=== PATIENT | female | born 1935 | race Caucasian/White ===

== ENCOUNTER 2021-06-01 23:38 | Inpatient (IN) | payer OTHER, SELFPAY ==
[~2021-06-01] VITALS: Ht 152.4 cm; Wt 44.0 kg
[2021-06-01 23:40] VITALS: BP_SYST 106
[2021-06-02 00:26] LABS: BASOPHILS % (AUTO) 0.3 % (0.0-2.0); EOSINOPHILS % (AUTO) 0.2 % (0.0-4.0); HEMATOCRIT 32.3 % (36-48); HEMOGLOBIN 10.6 g/dL (12.0-16.0); LYMPHOCYTES # (AUTO) 1.7 K/uL (1.0-5.5); LYMPHOCYTES % (AUTO) 18.2 % (20.5-51.5); MEAN CORPUSCULAR HEMOGLOBIN 30 pg (27-31); MEAN CORPUSCULAR HGB CONC 33 % (32-36); MEAN CORPUSCULAR VOLUME 91 fL (79.0-98.0); MONOCYTES # (AUTO) 0.6 K/uL (0.0-1.0); MONOCYTES % (AUTO) 6.8 % (1.7-9.3); NEUTROPHILS # (AUTO) 6.9 K/uL (1.8-7.7); NEUTROPHILS % (AUTO) 74.5 % (40.0-70.0); PLATELET COUNT (AUTO) 261 K/uL (130-430); RED BLOOD CELL COUNT(AUTO) 3.54 MIL/uL (4.2-6.2); WHITE BLOOD COUNT (AUTO) 9.2 K/uL (4.8-10.8)
[2021-06-02 00:32] LABS: ANION GAP 10 (5-15); CALCIUM 7.7 mg/dL (8.4-11.0); CHLORIDE 104 mmol/L (98-107); GLUCOSE 165 mg/dL (70-99); SODIUM SERUM 138 mmol/L (136-145); UREA NITROGEN, BLOOD 30 mg/dL (8-21)
[2021-06-02 00:36] LABS: PROTHROMBIN TIME 10.5 SECS (9.5-12.5)
[2021-06-02] MEDS ORDERED: LORazepam 2 MG/ML VIAL IVP ONE (00:45)
[2021-06-02] MEDS ORDERED: NS 500 ML IV ONE ×3 (00:45→03:30)
[2021-06-02 00:47] LABS: ALANINE AMINOTRANSFERASE 20 U/L (12-78); ALBUMIN 2.4 g/dL (3.4-4.8); ASPARTATE AMINOTRANSFERASE 30 U/L (10-37); THYROID STIMULATING HORMONE 0.02 uIu/mL (0.36-3.74); TOTAL BILIRUBIN 0.6 mg/dL (0.0-1.0)
[2021-06-02 00:51] LABS: ALCOHOL, BLOOD < 3 mg/dL (<10)
[2021-06-02] MEDS ORDERED: cefTRIAXone 1 GM IVPB PREMIX 50 ML IV ONE (03:30)
[2021-06-02 04:05] LABS: BILIRUBIN,URINE NEGATIVE (NEGATIVE); BLOOD, URINE NEGATIVE (NEGATIVE); CLARITY/URINE CLEAR (CLEAR); COLOR,URINE YELLOW (YELLOW); GLUCOSE,URINE NEGATIVE (NEGATIVE); KETONES,URINE NEGATIVE (NEGATIVE); LEUKOCYTE ESTERASE ,URINE NEGATIVE (NEGATIVE); NITRITE, URINE NEGATIVE (NEGATIVE); PROTEIN URINE NEGATIVE (NEGATIVE); UROBILINOGEN,URINE 0.2 (0.2-1.0)
[2021-06-02 04:18] LABS: BARBITURATE, URINE NEGATIVE (NEG <=200); BENZODIAZEPINE, URINE NEGATIVE (NEG <=150); CANNABINOID, URINE NEGATIVE (NEG <=50); COCAINE, URINE NEGATIVE (NEG <=150); METHAMPHETAMINES SCREEN,URINE NEGATIVE (NEG <=500); OPIATE, URINE NEGATIVE (NEG <=100); PHENCYCLIDINE SCREEN,URINE NEGATIVE (NEG <=25); UR TRICYCLIC ANTIDEPRESSANTS NEGATIVE (NEG <=300); URINE AMPHETAMINE NEGATIVE (NEG <=500); URINE METHADONE NEGATIVE (NEG <=200); URINE OXYCODONE SCREEN NEGATIVE (NEG <=100); URINE PROPOXYPHENE SCREEN NEGATIVE (NEG <=300)
[2021-06-02] MEDS ORDERED: KETAMINE 30 MG/3 ML SYRINGE IVP ONE (05:15)
[2021-06-02] MEDS ORDERED: ACETAMINOPHEN 325 MG TABLET PO PRN ×2 (06:30→08:15)
[2021-06-02] MEDS ORDERED: HALOPERIDOL LACTATE 5 MG/ML VIAL IM ONE (06:30)
[2021-06-02] MEDS ORDERED: DIPHENHYDRAMINE INJ 50 MG/ML VIAL IM ONE (06:30)
[2021-06-02] MEDS ORDERED: ONDANSETRON HCL 4 MG/2 ML VIAL IVP PRN (06:30)
[2021-06-02 08:01] LABS: BASOPHILS % (AUTO) 0.2 % (0.0-2.0); EOSINOPHILS % (AUTO) 0.1 % (0.0-4.0); HEMATOCRIT 24.6 % (36-48); HEMOGLOBIN 8.2 g/dL (12.0-16.0); LYMPHOCYTES # (AUTO) 1.2 K/uL (1.0-5.5); LYMPHOCYTES % (AUTO) 13.9 % (20.5-51.5); MEAN CORPUSCULAR HEMOGLOBIN 30 pg (27-31); MEAN CORPUSCULAR HGB CONC 33 % (32-36); MEAN CORPUSCULAR VOLUME 91 fL (79.0-98.0); MONOCYTES # (AUTO) 0.6 K/uL (0.0-1.0); MONOCYTES % (AUTO) 7.4 % (1.7-9.3); NEUTROPHILS # (AUTO) 6.8 K/uL (1.8-7.7); NEUTROPHILS % (AUTO) 78.4 % (40.0-70.0); PLATELET COUNT (AUTO) 212 K/uL (130-430); RED BLOOD CELL COUNT(AUTO) 2.69 MIL/uL (4.2-6.2); WHITE BLOOD COUNT (AUTO) 8.7 K/uL (4.8-10.8)
[2021-06-02 08:31] LABS: ANION GAP 6 (5-15); CHLORIDE 108 mmol/L (98-107); CREATININE 0.48 mg/dL (0.55-1.30); GLUCOSE 95 mg/dL (70-99); POTASSIUM 3.4 mmol/L (3.5-5.1); SODIUM SERUM 138 mmol/L (136-145); UREA NITROGEN, BLOOD 37 mg/dL (8-21)
[2021-06-02 08:45] LABS: CALCIUM 6.8 mg/dL (8.4-11.0)
[2021-06-02 12:04] LABS: TOTAL IRON BIND. CAPACITY 136 ug/dL (250-450)
[2021-06-02] MEDS: D5NS 1,000 ML IV SCH (12:15)
[2021-06-02] MEDS: NORMAL SALINE 5 ML DISP.SYRIN IVF SCH ×2 (13:56→22:06)
[2021-06-02] MEDS ORDERED: NORMAL SALINE 5 ML DISP.SYRIN IVF SCH (14:00)
[2021-06-02 16:22] VITALS: BP_SYST 126
[2021-06-02 20:00] VITALS: BP_SYST 109
[2021-06-03 00:30] VITALS: BP_SYST 102
[2021-06-03] MEDS: NORMAL SALINE 5 ML DISP.SYRIN IVF SCH ×3 (06:16→20:20)
[2021-06-03] MEDS: D5NS 1,000 ML IV SCH ×3 (06:16→23:13)
[2021-06-03 08:00] VITALS: BP_SYST 119
[2021-06-03] MEDS: NICOTINE 21 MG/24 HR PATCH.TD24 TD SCH (09:34)
[2021-06-03] MEDS ORDERED: ENOXAPARIN SODIUM 30 MG/0.3 ML SYRINGE SUBCUT SCH (10:30)
[2021-06-03 12:00] VITALS: BP_SYST 111
[2021-06-03] MEDS ORDERED: PANTOPRAZOLE SODIUM 40 MG/VIAL (PROTONIX) IVP ONE (13:00)
[2021-06-03 15:05] LABS: HEMOGLOBIN 5.6 g/dL (12.0-16.0)
[2021-06-03 15:06] LABS: HEMATOCRIT 17.3 % (36-48)
[2021-06-03 16:00] VITALS: BP_SYST 122
[2021-06-03] MEDS ORDERED: NACL 0.9% 1,000 ML IV ONE (16:00)
[2021-06-03 20:00] VITALS: BP_SYST 118
[2021-06-03] MEDS: PANTOPRAZOLE SODIUM 40 MG/VIAL (PROTONIX) IVP SCH (20:19)
[2021-06-03 20:41] LABS: HEMOGLOBIN 5.4 g/dL (12.0-16.0)
[2021-06-04] VITALS (14 sets, daily range): BP systolic 116–177
[2021-06-04] MEDS: NORMAL SALINE 5 ML DISP.SYRIN IVF SCH ×3 (06:11→22:25)
[2021-06-04 06:57] LABS: BASOPHILS % (AUTO) 0.1 % (0.0-2.0); HEMATOCRIT 32.3 % (36-48); HEMOGLOBIN 10.8 g/dL (12.0-16.0); LYMPHOCYTES # (AUTO) 1.3 K/uL (1.0-5.5); LYMPHOCYTES % (AUTO) 7.9 % (20.5-51.5); MEAN CORPUSCULAR HEMOGLOBIN 30 pg (27-31); MEAN CORPUSCULAR HGB CONC 33 % (32-36); MEAN CORPUSCULAR VOLUME 91 fL (79.0-98.0); MONOCYTES # (AUTO) 0.8 K/uL (0.0-1.0); MONOCYTES % (AUTO) 4.9 % (1.7-9.3); NEUTROPHILS # (AUTO) 14.9 K/uL (1.8-7.7); NEUTROPHILS % (AUTO) 87.1 % (40.0-70.0); PLATELET COUNT (AUTO) 163 K/uL (130-430); RED BLOOD CELL COUNT(AUTO) 3.57 MIL/uL (4.2-6.2); RED CELL DISTRIBUTION WIDTH 15.5 % (9.0-15.0); WHITE BLOOD COUNT (AUTO) 17.1 K/uL (4.8-10.8)
[2021-06-04 06:58] LABS: PROTHROMBIN TIME 10.8 SECS (9.5-12.5)
[2021-06-04 07:29] LABS: ALANINE AMINOTRANSFERASE 13 U/L (12-78); ALBUMIN 1.9 g/dL (3.4-4.8); ANION GAP 9 (5-15); ASPARTATE AMINOTRANSFERASE 28 U/L (10-37); CALCIUM 7.1 mg/dL (8.4-11.0); CHLORIDE 117 mmol/L (98-107); CREATININE 0.61 mg/dL (0.55-1.30); GLUCOSE 108 mg/dL (70-99); SODIUM SERUM 147 mmol/L (136-145); TOTAL BILIRUBIN 0.7 mg/dL (0.0-1.0); UREA NITROGEN, BLOOD 37 mg/dL (8-21)
[2021-06-04] MEDS ORDERED: MIDAZOLAM HCL 5 MG/5 ML VIAL ONE (08:12)
[2021-06-04] MEDS ORDERED: fentaNYL CITRATE/PF 100 MCG/2 ML AMP ONE ×2 (08:12→14:34)
[2021-06-04 08:21] LABS: POTASSIUM 2.7 mmol/L (3.5-5.1)
[2021-06-04] MEDS ORDERED: HEPARIN SODIUM, PORCINE 10,000 UNITS/ 10 ML VIAL ONE (08:30)
[2021-06-04] MEDS ORDERED: NS 1000 ML IV.SOLN IV ONE (08:30)
[2021-06-04] MEDS ORDERED: NS 500 ML IV.SOLN IV ONE (08:30)
[2021-06-04] MEDS ORDERED: KCL 20 mEq in 100 mL (PREMIX) 100 ML IV ONE (08:30)
[2021-06-04] MEDS ORDERED: LIDOCAINE 1% 10 MG/ML, 20 ML MDV ONE (08:30)
[2021-06-04] MEDS ORDERED: WATER FOR IRRIGATION,STERILE 1,000 ML IRRIG.SOLN IR ONE (08:30)
[2021-06-04] MEDS: PANTOPRAZOLE SODIUM 40 MG/VIAL (PROTONIX) IVP SCH (08:56)
[2021-06-04] MEDS: NICOTINE 21 MG/24 HR PATCH.TD24 TD SCH (09:00)
[2021-06-04] MEDS: PANTOPRAZOLE SODIUM 40 MG in NS 50 ML IV SCH ×3 (10:00→20:23)
[2021-06-04] MEDS ORDERED: EPINEPHrine JECT 0.1 MG/ML SYR ONE (10:30)
[2021-06-04] MEDS: D5NS 1,000 ML IV SCH ×2 (11:00→18:43)
[2021-06-04] MEDS ORDERED: MEPERIDINE 100 MG INJ. 100 MG/ML VIAL ONE (14:34)
[2021-06-04] MEDS: MIDAZOLAM HCL 5 MG/5 ML VIAL ONE ×2 (15:45→15:47)
[2021-06-04] MEDS ORDERED: IOHEXOL 350 mgI/mL, 150 ML INFUS..BTL IV ONE (17:17)
[2021-06-04 20:28] LABS: MEAN CORPUSCULAR HEMOGLOBIN 29 pg (27-31); MEAN CORPUSCULAR HGB CONC 32 % (32-36); MEAN CORPUSCULAR VOLUME 91 fL (79.0-98.0); PLATELET COUNT (AUTO) 139 K/uL (130-430); RED BLOOD CELL COUNT(AUTO) 4.28 MIL/uL (4.2-6.2); RED CELL DISTRIBUTION WIDTH 15.6 % (9.0-15.0); WHITE BLOOD COUNT (AUTO) 20.3 K/uL (4.8-10.8)
[2021-06-04 20:31] LABS: HEMOGLOBIN 12.5 g/dL (12.0-16.0)
[2021-06-04 20:41] LABS: BAND % (MANUAL) 0 % (0-6); BASOPHILS % (MANUAL) 0 % (0-2); EOSINOPHILS % (MANUAL) 0 % (0-7); LYMPHOCYTES % (MANUAL) 7 % (20-46); MONOCYTES % (MANUAL) 6 % (0-11)
[2021-06-04 23:34] LABS: BASOPHILS % (AUTO) 0.1 % (0.0-2.0); EOSINOPHILS % (AUTO) 0.1 % (0.0-4.0); HEMATOCRIT 37.2 % (36-48); HEMOGLOBIN 12.1 g/dL (12.0-16.0); LYMPHOCYTES # (AUTO) 1.3 K/uL (1.0-5.5); LYMPHOCYTES % (AUTO) 7.1 % (20.5-51.5); MEAN CORPUSCULAR HEMOGLOBIN 30 pg (27-31); MEAN CORPUSCULAR HGB CONC 33 % (32-36); MEAN CORPUSCULAR VOLUME 90 fL (79.0-98.0); MONOCYTES # (AUTO) 0.7 K/uL (0.0-1.0); MONOCYTES % (AUTO) 4.1 % (1.7-9.3); NEUTROPHILS # (AUTO) 15.9 K/uL (1.8-7.7); NEUTROPHILS % (AUTO) 88.6 % (40.0-70.0); PLATELET COUNT (AUTO) 139 K/uL (130-430); RED BLOOD CELL COUNT(AUTO) 4.12 MIL/uL (4.2-6.2); RED CELL DISTRIBUTION WIDTH 15.5 % (9.0-15.0); WHITE BLOOD COUNT (AUTO) 17.9 K/uL (4.8-10.8)
[2021-06-05] VITALS (24 sets, daily range): BP systolic 102–187
[2021-06-05] MEDS: PANTOPRAZOLE SODIUM 40 MG in NS 50 ML IV SCH ×5 (01:30→20:40)
[2021-06-05] MEDS: DIPHENHYDRAMINE INJ 50 MG/ML VIAL IVP PRN ×2 (01:31→22:32)
[2021-06-05] MEDS: D5NS 1,000 ML IV SCH ×2 (04:41→14:32)
[2021-06-05] MEDS: NORMAL SALINE 5 ML DISP.SYRIN IVF SCH ×3 (05:44→22:24)
[2021-06-05 08:38] LABS: ALANINE AMINOTRANSFERASE 19 U/L (12-78); ALBUMIN 1.9 g/dL (3.4-4.8); ANION GAP 8 (5-15); ASPARTATE AMINOTRANSFERASE 28 U/L (10-37); BASOPHILS % (AUTO) 0.2 % (0.0-2.0); CALCIUM 7.3 mg/dL (8.4-11.0); CHLORIDE 119 mmol/L (98-107); GLUCOSE 98 mg/dL (70-99); HEMATOCRIT 35.4 % (36-48); HEMOGLOBIN 11.9 g/dL (12.0-16.0); LYMPHOCYTES % (AUTO) 6.4 % (20.5-51.5); MEAN CORPUSCULAR HEMOGLOBIN 30 pg (27-31); MEAN CORPUSCULAR HGB CONC 34 % (32-36); MEAN CORPUSCULAR VOLUME 90 fL (79.0-98.0); MONOCYTES # (AUTO) 0.7 K/uL (0.0-1.0); MONOCYTES % (AUTO) 4.3 % (1.7-9.3); NEUTROPHILS # (AUTO) 13.6 K/uL (1.8-7.7); NEUTROPHILS % (AUTO) 89.1 % (40.0-70.0); PLATELET COUNT (AUTO) 141 K/uL (130-430); RED BLOOD CELL COUNT(AUTO) 3.94 MIL/uL (4.2-6.2); RED CELL DISTRIBUTION WIDTH 15.6 % (9.0-15.0); SODIUM SERUM 148 mmol/L (136-145); TOTAL BILIRUBIN 0.5 mg/dL (0.0-1.0); UREA NITROGEN, BLOOD 20 mg/dL (8-21); WHITE BLOOD COUNT (AUTO) 15.2 K/uL (4.8-10.8)
[2021-06-05 09:04] LABS: POTASSIUM 2.6 mmol/L (3.5-5.1)
[2021-06-05] MEDS ORDERED: KCL 40 mEq in 100 mL (PREMIX) 100 ML IV ONE (09:15)
[2021-06-05] MEDS ORDERED: POTASSIUM CHLORIDE 20 MEQ TAB.PRT.SR PO ONE (09:15)
[2021-06-05] MEDS: NICOTINE 21 MG/24 HR PATCH.TD24 TD SCH (09:33)
[2021-06-05] MEDS ORDERED: cloNIDine HCL 0.1 MG TABLET PO PRN (11:30)
[2021-06-05] MEDS ORDERED: LISINOPRIL 10 MG TABLET (PRINIVIL) PO ONE (11:45)
[2021-06-05] MEDS ORDERED: HYDROCHLOROTHIAZIDE 25 MG TABLET (HCTZ) PO ONE (11:45)
[2021-06-05 15:56] LABS: BASOPHILS % (AUTO) 0.1 % (0.0-2.0); HEMATOCRIT 40.5 % (36-48); HEMOGLOBIN 13.3 g/dL (12.0-16.0); LYMPHOCYTES % (AUTO) 6.2 % (20.5-51.5); MEAN CORPUSCULAR HEMOGLOBIN 30 pg (27-31); MEAN CORPUSCULAR HGB CONC 33 % (32-36); MEAN CORPUSCULAR VOLUME 90 fL (79.0-98.0); MONOCYTES # (AUTO) 0.7 K/uL (0.0-1.0); MONOCYTES % (AUTO) 4.4 % (1.7-9.3); NEUTROPHILS % (AUTO) 89.3 % (40.0-70.0); PLATELET COUNT (AUTO) 151 K/uL (130-430); WHITE BLOOD COUNT (AUTO) 16.8 K/uL (4.8-10.8)
[2021-06-05 23:42] LABS: BASOPHILS % (AUTO) 0.1 % (0.0-2.0); EOSINOPHILS % (AUTO) 0.2 % (0.0-4.0); HEMOGLOBIN 11.8 g/dL (12.0-16.0); LYMPHOCYTES # (AUTO) 1.2 K/uL (1.0-5.5); LYMPHOCYTES % (AUTO) 7.5 % (20.5-51.5); MEAN CORPUSCULAR HEMOGLOBIN 30 pg (27-31); MEAN CORPUSCULAR HGB CONC 33 % (32-36); MEAN CORPUSCULAR VOLUME 90 fL (79.0-98.0); MONOCYTES # (AUTO) 0.9 K/uL (0.0-1.0); MONOCYTES % (AUTO) 5.7 % (1.7-9.3); NEUTROPHILS # (AUTO) 14.1 K/uL (1.8-7.7); NEUTROPHILS % (AUTO) 86.5 % (40.0-70.0); PLATELET COUNT (AUTO) 132 K/uL (130-430); WHITE BLOOD COUNT (AUTO) 16.3 K/uL (4.8-10.8)
[2021-06-06] VITALS (24 sets, daily range): BP systolic 96–159
[2021-06-06] MEDS: D5NS 1,000 ML IV SCH (01:46)
[2021-06-06] MEDS: PANTOPRAZOLE SODIUM 40 MG in NS 50 ML IV SCH ×4 (03:25→17:00)
[2021-06-06] MEDS: NORMAL SALINE 5 ML DISP.SYRIN IVF SCH ×3 (05:18→22:00)
[2021-06-06 07:37] LABS: BASOPHILS % (AUTO) 0.1 % (0.0-2.0); EOSINOPHILS % (AUTO) 0.1 % (0.0-4.0); HEMATOCRIT 32.3 % (36-48); HEMOGLOBIN 10.9 g/dL (12.0-16.0); LYMPHOCYTES # (AUTO) 1.2 K/uL (1.0-5.5); MEAN CORPUSCULAR HEMOGLOBIN 30 pg (27-31); MEAN CORPUSCULAR HGB CONC 34 % (32-36); MEAN CORPUSCULAR VOLUME 90 fL (79.0-98.0); MONOCYTES # (AUTO) 0.8 K/uL (0.0-1.0); MONOCYTES % (AUTO) 6.4 % (1.7-9.3); NEUTROPHILS % (AUTO) 84.4 % (40.0-70.0); PLATELET COUNT (AUTO) 126 K/uL (130-430); RED BLOOD CELL COUNT(AUTO) 3.58 MIL/uL (4.2-6.2); RED CELL DISTRIBUTION WIDTH 15.6 % (9.0-15.0)
[2021-06-06 07:41] LABS: ANION GAP 7 (5-15); CALCIUM 7.2 mg/dL (8.4-11.0); CHLORIDE 115 mmol/L (98-107); CREATININE 0.49 mg/dL (0.55-1.30); GLUCOSE 109 mg/dL (70-99); POTASSIUM 3.1 mmol/L (3.5-5.1); SODIUM SERUM 146 mmol/L (136-145); UREA NITROGEN, BLOOD 17 mg/dL (8-21)
[2021-06-06] MEDS ORDERED: POTASSIUM CHLORIDE 20 MEQ TAB.PRT.SR PO ONE (08:45)
[2021-06-06] MEDS: HYDROCHLOROTHIAZIDE 25 MG TABLET (HCTZ) PO SCH (08:51)
[2021-06-06] MEDS: LISINOPRIL 10 MG TABLET (PRINIVIL) PO SCH (08:51)
[2021-06-06] MEDS: NICOTINE 21 MG/24 HR PATCH.TD24 TD SCH (08:52)
[2021-06-06 17:07] LABS: BASOPHILS % (AUTO) 0.1 % (0.0-2.0); EOSINOPHILS % (AUTO) 0.3 % (0.0-4.0); HEMATOCRIT 29.1 % (36-48); HEMOGLOBIN 9.7 g/dL (12.0-16.0); LYMPHOCYTES # (AUTO) 1.4 K/uL (1.0-5.5); MEAN CORPUSCULAR HEMOGLOBIN 30 pg (27-31); MEAN CORPUSCULAR HGB CONC 33 % (32-36); MEAN CORPUSCULAR VOLUME 91 fL (79.0-98.0); MONOCYTES # (AUTO) 0.8 K/uL (0.0-1.0); NEUTROPHILS # (AUTO) 10.9 K/uL (1.8-7.7); NEUTROPHILS % (AUTO) 82.6 % (40.0-70.0); PLATELET COUNT (AUTO) 117 K/uL (130-430); RED BLOOD CELL COUNT(AUTO) 3.19 MIL/uL (4.2-6.2); RED CELL DISTRIBUTION WIDTH 15.4 % (9.0-15.0); WHITE BLOOD COUNT (AUTO) 13.1 K/uL (4.8-10.8)
[2021-06-07] VITALS (19 sets, daily range): BP systolic 94–150
[2021-06-07] MEDS: D5NS 1,000 ML IV SCH ×3 (00:12→16:42)
[2021-06-07] MEDS: PANTOPRAZOLE SODIUM 40 MG in NS 50 ML IV SCH ×6 (00:13→23:00)
[2021-06-07] MEDS: NORMAL SALINE 5 ML DISP.SYRIN IVF SCH ×3 (06:00→22:00)
[2021-06-07 08:17] LABS: ALANINE AMINOTRANSFERASE 15 U/L (12-78); ALBUMIN 1.4 g/dL (3.4-4.8); ANION GAP 7 (5-15); ASPARTATE AMINOTRANSFERASE 22 U/L (10-37); C-REACTIVE PROTEIN QUANT 1.9 mg/dL (0-0.5); CHLORIDE 112 mmol/L (98-107); CREATININE 0.39 mg/dL (0.55-1.30); GLUCOSE 91 mg/dL (70-99); POTASSIUM 3.3 mmol/L (3.5-5.1); SODIUM SERUM 142 mmol/L (136-145); TOTAL BILIRUBIN 0.4 mg/dL (0.0-1.0); UREA NITROGEN, BLOOD 22 mg/dL (8-21)
[2021-06-07 08:49] LABS: CALCIUM 7.1 mg/dL (8.4-11.0)
[2021-06-07 09:00] LABS: EOSINOPHILS # (AUTO) 0.1 K/uL (0.0-0.4); EOSINOPHILS % (AUTO) 0.9 % (0.0-4.0); HEMATOCRIT 28.8 % (36-48); HEMOGLOBIN 9.6 g/dL (12.0-16.0); LYMPHOCYTES # (AUTO) 1.1 K/uL (1.0-5.5); LYMPHOCYTES % (AUTO) 10.4 % (20.5-51.5); MEAN CORPUSCULAR HEMOGLOBIN 30 pg (27-31); MEAN CORPUSCULAR HGB CONC 33 % (32-36); MEAN CORPUSCULAR VOLUME 91 fL (79.0-98.0); MONOCYTES # (AUTO) 0.6 K/uL (0.0-1.0); MONOCYTES % (AUTO) 5.2 % (1.7-9.3); NEUTROPHILS # (AUTO) 9.2 K/uL (1.8-7.7); NEUTROPHILS % (AUTO) 83.5 % (40.0-70.0); PLATELET COUNT (AUTO) 123 K/uL (130-430); RED BLOOD CELL COUNT(AUTO) 3.17 MIL/uL (4.2-6.2); RED CELL DISTRIBUTION WIDTH 15.5 % (9.0-15.0)
[2021-06-07] MEDS: LISINOPRIL 10 MG TABLET (PRINIVIL) PO SCH (09:48)
[2021-06-07] MEDS: NICOTINE 21 MG/24 HR PATCH.TD24 TD SCH (09:48)
[2021-06-07] MEDS: HYDROCHLOROTHIAZIDE 25 MG TABLET (HCTZ) PO SCH (09:49)
[2021-06-07 10:37] LABS: ERYTHROCYTE SEDIMENTATION RATE 13 MM/HR (0-20)
[2021-06-07] MEDS ORDERED: POTASSIUM CHLORIDE 20 MEQ/PKT PACKET PO ONE (11:36)
[2021-06-08] VITALS (7 sets, daily range): BP systolic 108–118
[2021-06-08] MEDS: D5NS 1,000 ML IV SCH (02:30)
[2021-06-08] MEDS: PANTOPRAZOLE SODIUM 40 MG in NS 50 ML IV SCH (04:00)
[2021-06-08] MEDS: NORMAL SALINE 5 ML DISP.SYRIN IVF SCH (06:34)
[2021-06-08] MEDS ORDERED: PRO40 PO (13:30)
[2021-06-08] MEDS ORDERED: PANTOPRAZOLE SODIUM 40 MG TAB PO ONE (13:45)
[2021-06-08] MEDS ORDERED: PANTOPRAZOLE SODIUM 40 MG TAB PO SCH (21:00)
[2021-06-09] MEDS ORDERED: LISINOPRIL 10 MG TABLET (PRINIVIL) PO SCH (09:00)
== END 2021-06-08 15:30 | disposition home health service (06) | DRG 981 ==
LOC: SED 23:38 → STU 06-02 06:17 → INTOOBSV 06-02 06:17 → OBSVTOIN 06-02 06:17 → STU 06-02 15:55 → SIC 06-04 09:39 → OBSVTOIN 06-05 10:20 → SMU 06-07 20:07 → SIC 06-07 20:07 → SMU 06-07 20:30 → STU 06-07 20:30 → SMU 06-07 20:54 → UNDODISIN 06-08 15:30
PROVIDERS: ADMIT Internal Medicine Hospice and Palliative Medicine; ATTEND Internal Medicine Hospice and Palliative Medicine
PROC: 04V Lower Arteries, Restriction (ICD-10-PCS; 2021-06-04)
PROC: XW0G886 Introduction of Mineral-based Topical Hemostatic Agent into Upper GI, Via Natural or Artificial Opening Endoscopic, New Technology Group 6 (ICD-10-PCS; 2021-06-04)
PROC: 0W3P8ZZ Control Bleeding in Gastrointestinal Tract, Via Natural or Artificial Opening Endoscopic (ICD-10-PCS; 2021-06-04)
PROC: 30233N1 Transfusion of Nonautologous Red Blood Cells into Peripheral Vein, Percutaneous Approach (ICD-10-PCS; 2021-06-04)
PROC: B4121ZZ Fluoroscopy of Hepatic Artery using Low Osmolar Contrast (ICD-10-PCS; 2021-06-04)
PROC: B41J1ZZ Fluoroscopy of Other Lower Arteries using Low Osmolar Contrast (ICD-10-PCS; 2021-06-04)
PROC: 3E0G8GC Introduction of Other Therapeutic Substance into Upper GI, Via Natural or Artificial Opening Endoscopic (ICD-10-PCS; principal; 2021-06-04 08:30)
DX: K26.4 Chronic or unspecified duodenal ulcer with hemorrhage (principal); J96.00 Acute respiratory failure, unspecified whether with hypoxia or hypercapnia; E87.0 Hyperosmolality and hypernatremia; E87.2 Acidosis; E86.0 Dehydration; J44.9 Chronic obstructive pulmonary disease, unspecified; D69.6 Thrombocytopenia, unspecified; E83.52 Hypercalcemia; I49.3 Ventricular premature depolarization; D64.9 Anemia, unspecified; D72.829 Elevated white blood cell count, unspecified; E87.6 Hypokalemia; E87.8 Other disorders of electrolyte and fluid balance, not elsewhere classified; F02.80 Dementia in other diseases classified elsewhere, unspecified severity, without behavioral disturbance, psychotic disturbance, mood disturbance, and anxiety; F17.210 Nicotine dependence, cigarettes, uncomplicated; G30.9 Alzheimer's disease, unspecified; I25.10 Atherosclerotic heart disease of native coronary artery without angina pectoris; I49.1 Atrial premature depolarization; I73.9 Peripheral vascular disease, unspecified; Z20.822 Contact with and (suspected) exposure to COVID-19
CPT/HCPCS: 36415; 43255; 70450-TC; 71045; 71250-TC; 72125-TC; 76376; 80048; 80053; 80307; 81003; 82272; 82607; 83540; 83550; 83605; 83880; 84439; 84443; 84484; 85007; 85018; 85025; 85027; 85610-TC; 85651-TC; 85730-TC; 86140; 86886; 86900; 86901; 86920; 87040; 87086; 93005; 93306; 96361; 96365; 96375; 97116-GP; 97530-GP; 99285; C1052; C9113; G0278; G0378; G0482; J0171; J0696; J1200; J1630; J1644; J2001; J2060; J2175; J2250; J3010; J3480; J7030; J7040; P9021; Q9967; U0003

== ENCOUNTER 2021-06-10 13:53 | Emergency (ER) | payer OTHER, SELFPAY ==
[~2021-06-10] VITALS: Ht 152.4 cm; Wt 29.5 kg
[~2021-06-10 13:53] MED LIST: PRO40 PO
[2021-06-10 13:55] VITALS: BP_SYST 86
[2021-06-10 15:51] LABS: BASOPHILS % (AUTO) 0.2 % (0.0-2.0); EOSINOPHILS % (AUTO) 0.2 % (0.0-4.0); HEMOGLOBIN 8.5 g/dL (12.0-16.0); LYMPHOCYTES % (AUTO) 11.7 % (20.5-51.5); MEAN CORPUSCULAR HEMOGLOBIN 31 pg (27-31); MEAN CORPUSCULAR HGB CONC 34 % (32-36); MEAN CORPUSCULAR VOLUME 91 fL (79.0-98.0); MONOCYTES # (AUTO) 0.4 K/uL (0.0-1.0); MONOCYTES % (AUTO) 5.3 % (1.7-9.3); NEUTROPHILS % (AUTO) 82.6 % (40.0-70.0); PLATELET COUNT (AUTO) 174 K/uL (130-430); RED BLOOD CELL COUNT(AUTO) 2.74 MIL/uL (4.2-6.2); RED CELL DISTRIBUTION WIDTH 15.7 % (9.0-15.0); WHITE BLOOD COUNT (AUTO) 8.4 K/uL (4.8-10.8)
[2021-06-10 16:13] LABS: BILIRUBIN,URINE NEGATIVE (NEGATIVE); BLOOD, URINE NEGATIVE (NEGATIVE); CLARITY/URINE CLEAR (CLEAR); COLOR,URINE YELLOW (YELLOW); GLUCOSE,URINE NEGATIVE (NEGATIVE); KETONES,URINE NEGATIVE (NEGATIVE); LEUKOCYTE ESTERASE ,URINE NEGATIVE (NEGATIVE); NITRITE, URINE NEGATIVE (NEGATIVE); PROTEIN URINE TRACE (NEGATIVE); UROBILINOGEN,URINE 0.2 (0.2-1.0)
[2021-06-10 16:34] LABS: ANION GAP 8 (5-15); CALCIUM 7.4 mg/dL (8.4-11.0); CHLORIDE 107 mmol/L (98-107); CREATININE 0.77 mg/dL (0.55-1.30); GLUCOSE 130 mg/dL (70-99); SODIUM SERUM 142 mmol/L (136-145); UREA NITROGEN, BLOOD 16 mg/dL (8-21)
[2021-06-10 16:58] LABS: POTASSIUM 2.3 mmol/L (3.5-5.1)
[2021-06-10 17:13] LABS: ALANINE AMINOTRANSFERASE 28 U/L (12-78); ALBUMIN 1.7 g/dL (3.4-4.8); ASPARTATE AMINOTRANSFERASE 32 U/L (10-37); TOTAL BILIRUBIN 0.3 mg/dL (0.0-1.0)
[2021-06-10] MEDS ORDERED: POTASSIUM CHLORIDE 20 MEQ TAB.PRT.SR PO ONE (17:15)
[2021-06-10 17:26] LABS: BACTERIA,URINE RARE /HPF (None Seen); RBC,URINE NONE SEEN /HPF (0-3); WBC,URINE 0-3 /HPF (0-3)
[2021-06-10 17:27] LABS: MUCUS,URINE None Seen /LPF (None Seen)
[2021-06-10 20:30] VITALS: BP_SYST 86
== END 2021-06-10 20:30 | disposition left against medical advice (07) ==
LOC: SED 13:53
DX: U07.1 COVID-19 (principal); R77.8 Other specified abnormalities of plasma proteins; E83.51 Hypocalcemia; E87.6 Hypokalemia; Z79.899 Other long term (current) drug therapy
CPT/HCPCS: 36415; 71045; 80053; 81000; 82550; 83880; 84484; 85025; 93005; 99285

== ENCOUNTER 2021-06-14 14:24 | Inpatient (IN) | payer OTHER, SELFPAY ==
[~2021-06-14] VITALS: Ht 149.9 cm; Wt 39.9 kg
[2021-06-14] MEDS: D5/0.45 NS 1,000 ML IV SCH
[2021-06-14 14:57] VITALS: BP_SYST 94
[2021-06-14] MEDS ORDERED: NACL 0.9% 1,000 ML IV SCH (18:15)
[2021-06-14] MEDS ORDERED: PANTOPRAZOLE SODIUM 80 MG in NS 100 ML IVP ONE (18:30)
[2021-06-14 18:45] LABS: HEMATOCRIT 27.3 % (36-48); HEMOGLOBIN 9.1 g/dL (12.0-16.0); MEAN CORPUSCULAR HEMOGLOBIN 31 pg (27-31); MEAN CORPUSCULAR HGB CONC 33 % (32-36); MEAN CORPUSCULAR VOLUME 92 fL (79.0-98.0); PLATELET COUNT (AUTO) 315 K/uL (130-430); RED BLOOD CELL COUNT(AUTO) 2.98 MIL/uL (4.2-6.2); RED CELL DISTRIBUTION WIDTH 16.7 % (9.0-15.0); WHITE BLOOD COUNT (AUTO) 7.1 K/uL (4.8-10.8)
[2021-06-14 19:08] LABS: ALANINE AMINOTRANSFERASE 22 U/L (12-78); ALBUMIN 1.9 g/dL (3.4-4.8); ANION GAP 5 (5-15); ASPARTATE AMINOTRANSFERASE 27 U/L (10-37); CALCIUM 7.3 mg/dL (8.4-11.0); CHLORIDE 104 mmol/L (98-107); GLUCOSE 66 mg/dL (70-99); SODIUM SERUM 140 mmol/L (136-145); TOTAL BILIRUBIN 0.2 mg/dL (0.0-1.0); UREA NITROGEN, BLOOD 15 mg/dL (8-21)
[2021-06-14 19:13] LABS: POTASSIUM 2.9 mmol/L (3.5-5.1)
[2021-06-14 19:15] LABS: INR 0.9 (0.8-1.2); PROTHROMBIN TIME 9.3 SECS (9.5-12.5)
[2021-06-14] MEDS ORDERED: PANTOPRAZOLE SODIUM 40 MG/VIAL (PROTONIX) ONE ×2 (19:27)
[2021-06-14] MEDS: PANTOPRAZOLE SODIUM 40 MG in NS 50 ML IV SCH (19:38)
[2021-06-14] MEDS ORDERED: POTASSIUM CHLORIDE 20 MEQ/PKT PACKET PO ONE (19:45)
[2021-06-14 21:54] LABS: HEMATOCRIT 24.4 % (36-48); MEAN CORPUSCULAR HEMOGLOBIN 30 pg (27-31); MEAN CORPUSCULAR HGB CONC 33 % (32-36); MEAN CORPUSCULAR VOLUME 91 fL (79.0-98.0); PLATELET COUNT (AUTO) 278 K/uL (130-430); RED BLOOD CELL COUNT(AUTO) 2.67 MIL/uL (4.2-6.2); RED CELL DISTRIBUTION WIDTH 16.7 % (9.0-15.0); WHITE BLOOD COUNT (AUTO) 7.7 K/uL (4.8-10.8)
[2021-06-14] MEDS ORDERED: LORazepam 2 MG/ML VIAL ONE (22:01)
[2021-06-14] MEDS: LORazepam 2 MG/ML VIAL IVP PRN (22:04)
[2021-06-14] MEDS ORDERED: MORPHINE 2 MG/ML INJ. SYRINGE IVP PRN (22:30)
[2021-06-14] MEDS ORDERED: ONDANSETRON HCL 4 MG/2 ML VIAL IVP PRN (22:30)
[2021-06-14] MEDS ORDERED: LORazepam 2 MG/ML VIAL IVP PRN (22:30)
[2021-06-14] MEDS ORDERED: MORPHINE 4 MG INJ. 4 MG/ML VIAL IVP PRN (22:30)
[2021-06-14] MEDS ORDERED: NALOXONE HCL 0.4 MG/ML AMP (NARCAN) IVP PRN (22:30)
[2021-06-14 23:20] VITALS: BP_SYST 106
[2021-06-14] MEDS ORDERED: POTASSIUM CHLORIDE 40 MEQ in NS 250 ML IV ONE (23:30)
[2021-06-14] MEDS ORDERED: KCL 40 mEq in 100 mL (PREMIX) 100 ML IV ONE ×2 (23:40→23:45)
[2021-06-15] VITALS (19 sets, daily range): BP systolic 101–148
[2021-06-15] MEDS ORDERED: PANTOPRAZOLE SODIUM 40 MG/VIAL (PROTONIX) ONE (00:15)
[2021-06-15] MEDS: PANTOPRAZOLE SODIUM 40 MG in NS 50 ML IV SCH ×6 (00:23→21:59)
[2021-06-15 08:23] LABS: BASOPHILS % (AUTO) 0.3 % (0.0-2.0); EOSINOPHILS # (AUTO) 0.1 K/uL (0.0-0.4); EOSINOPHILS % (AUTO) 0.9 % (0.0-4.0); HEMOGLOBIN 10.2 g/dL (12.0-16.0); LYMPHOCYTES # (AUTO) 1.5 K/uL (1.0-5.5); LYMPHOCYTES % (AUTO) 26.1 % (20.5-51.5); MEAN CORPUSCULAR HEMOGLOBIN 30 pg (27-31); MEAN CORPUSCULAR HGB CONC 33 % (32-36); MEAN CORPUSCULAR VOLUME 90 fL (79.0-98.0); MONOCYTES # (AUTO) 0.3 K/uL (0.0-1.0); MONOCYTES % (AUTO) 5.5 % (1.7-9.3); NEUTROPHILS # (AUTO) 3.9 K/uL (1.8-7.7); NEUTROPHILS % (AUTO) 67.2 % (40.0-70.0); PLATELET COUNT (AUTO) 242 K/uL (130-430); RED BLOOD CELL COUNT(AUTO) 3.45 MIL/uL (4.2-6.2); RED CELL DISTRIBUTION WIDTH 16.5 % (9.0-15.0); WHITE BLOOD COUNT (AUTO) 5.8 K/uL (4.8-10.8)
[2021-06-15 08:59] LABS: ANION GAP 8 (5-15); CHLORIDE 107 mmol/L (98-107); CREATININE 0.43 mg/dL (0.55-1.30); GLUCOSE 102 mg/dL (70-99); POTASSIUM 3.6 mmol/L (3.5-5.1); SODIUM SERUM 139 mmol/L (136-145); UREA NITROGEN, BLOOD 13 mg/dL (8-21)
[2021-06-15 09:05] LABS: ALANINE AMINOTRANSFERASE 19 U/L (12-78); ALBUMIN 1.6 g/dL (3.4-4.8); ASPARTATE AMINOTRANSFERASE 24 U/L (10-37); TOTAL BILIRUBIN 0.8 mg/dL (0.0-1.0)
[2021-06-15 09:10] LABS: CALCIUM 6.7 mg/dL (8.4-11.0)
[2021-06-15] MEDS ORDERED: CALCIUM CHLORIDE 1 GM in NS 100 ML IV ONE (10:00)
[2021-06-15] MEDS: D5/0.45 NS 1,000 ML IV SCH ×2 (15:32→16:59)
[2021-06-16 01:00] VITALS: BP_SYST 102
[2021-06-16] MEDS: PANTOPRAZOLE SODIUM 40 MG in NS 50 ML IV SCH (02:22)
[2021-06-16] MEDS: D5/0.45 NS 1,000 ML IV SCH ×3 (02:45→23:29)
[2021-06-16 07:02] LABS: BASOPHILS % (AUTO) 0.7 % (0.0-2.0); EOSINOPHILS # (AUTO) 0.1 K/uL (0.0-0.4); EOSINOPHILS % (AUTO) 1.3 % (0.0-4.0); HEMATOCRIT 33.2 % (36-48); HEMOGLOBIN 11.3 g/dL (12.0-16.0); LYMPHOCYTES # (AUTO) 1.4 K/uL (1.0-5.5); LYMPHOCYTES % (AUTO) 23.6 % (20.5-51.5); MEAN CORPUSCULAR HEMOGLOBIN 30 pg (27-31); MEAN CORPUSCULAR HGB CONC 34 % (32-36); MEAN CORPUSCULAR VOLUME 90 fL (79.0-98.0); MONOCYTES # (AUTO) 0.4 K/uL (0.0-1.0); MONOCYTES % (AUTO) 6.3 % (1.7-9.3); NEUTROPHILS # (AUTO) 4.1 K/uL (1.8-7.7); NEUTROPHILS % (AUTO) 68.1 % (40.0-70.0); PLATELET COUNT (AUTO) 295 K/uL (130-430); RED BLOOD CELL COUNT(AUTO) 3.71 MIL/uL (4.2-6.2); RED CELL DISTRIBUTION WIDTH 17.1 % (9.0-15.0)
[2021-06-16] MEDS ORDERED: PANTOPRAZOLE SODIUM 40 MG/VIAL (PROTONIX) IVP ONE (09:00)
[2021-06-16 12:00] VITALS: BP_SYST 121
[2021-06-16 16:00] VITALS: BP_SYST 118
[2021-06-16 20:20] VITALS: BP_SYST 126
[2021-06-16] MEDS ORDERED: PANTOPRAZOLE SODIUM 40 MG/VIAL (PROTONIX) IVP SCH (21:00)
[2021-06-16] MEDS: LORazepam 2 MG/ML VIAL IVP PRN (22:40)
[2021-06-17 00:30] VITALS: BP_SYST 118
[2021-06-17 08:00] VITALS: BP_SYST 108
[2021-06-17 11:30] VITALS: BP_SYST 117
[2021-06-17 15:20] VITALS: BP_SYST 105
== END 2021-06-17 16:30 | disposition hospice, inpatient (51) | DRG 377 ==
LOC: SED 14:24 → SIC 20:32 → SMU 06-15 18:13
PROVIDERS: ADMIT Preventive Medicine Preventive Medicine/Occupational Environmental Medicine; ATTEND Internal Medicine Hospice and Palliative Medicine
PROC: 30233N1 Transfusion of Nonautologous Red Blood Cells into Peripheral Vein, Percutaneous Approach (ICD-10-PCS; principal; 2021-06-15)
DX: K92.2 Gastrointestinal hemorrhage, unspecified (principal); U07.1 COVID-19; E43 Unspecified severe protein-calorie malnutrition; Z68.1 Body mass index [BMI] 19.9 or less, adult; D64.9 Anemia, unspecified; J44.9 Chronic obstructive pulmonary disease, unspecified; G30.9 Alzheimer's disease, unspecified; F02.80 Dementia in other diseases classified elsewhere, unspecified severity, without behavioral disturbance, psychotic disturbance, mood disturbance, and anxiety; Z87.891 Personal history of nicotine dependence
CPT/HCPCS: 36415; 36430; 71045; 80053; 83051; 84484; 85014; 85025; 85048; 85049-TC; 85610-TC; 85730-TC; 86886; 86900; 86901; 86920; 87081; 93970; 96361; 96374; 96375; 99291; C9113; J2060; J3480; J7050; P9021